=== PATIENT | female | born 1970 | race Caucasian/White ===

== ENCOUNTER 2019-08-29 10:59 | Outpatient (CLI) | payer OTHER, SELFPAY ==
--- NOTE | 2019-08-29 11:03 | ECG_ITS ---
Measurements Intervals [place] Rate: 65 P: 34 W[place]: 183 QRS: 55 QRSD: 85 T: 48 QT: 386 QTc: 402 Interpretive Statements SINUS RHYTHM NORMAL ECG Electronically Signed On 08-29-2019 11:56:50 CDT by Mookie Galvez D.O.
[2019-08-29 11:33] LABS: Hematocrit 33.2 % (37.0-47.0)
== END 2019-08-29 11:00 | disposition home or self-care (01) ==
LOC: ANHSURGERY 11:03
PROVIDERS: Anesthesiology; PCP Physician Assistant; Visit Provider Obstetrics & Gynecology
DX: Z01.818 Encounter for other preprocedural examination (principal); N92.0 Excessive and frequent menstruation with regular cycle; Z72.0 Tobacco use
CPT/HCPCS: 36415; 85014; 85018; 93005

== ENCOUNTER 2019-09-03 00:34 | Outpatient (CLI) | payer OTHER, SELFPAY ==
[2019-09-03 20:03] LABS: SARS-CoV-2 RNA PCR Negative
== END 2019-09-03 00:35 | disposition home or self-care (01) ==
LOC: ANHCOVIDDT 00:35
PROVIDERS: PCP Physician Assistant; Visit Provider Obstetrics & Gynecology
DX: Z01.818 Encounter for other preprocedural examination (principal); Z11.59 Encounter for screening for other viral diseases
CPT/HCPCS: 87635; C9803; U0003

== ENCOUNTER 2019-09-05 01:43 | Day surgery (SDC) | payer OTHER, SELFPAY ==
[2019-08-27 11:15] VITALS: BMI 27.8
[2019-09-05 09:49] VITALS: BP 127/71; PULSE 60; RESP 20; TEMP 35.7; O2SAT 100
[2019-09-05] MEDS: LACTATED RINGERS 1,000 ML 30 ML IV CONT (10:05)
[2019-09-05] MEDS: ACETAMINOPHEN 500 MG TABLET 1000 MG PO (10:10)
--- NOTE | 2019-09-05 10:23 | WPDANESEPPF ---
Anes - Initial Pre Proc Eval Procedure: Operation Date: 09/05/19 12:00 Proposed Procedures p Hysteroscopy Dilation and Curettage, With Myosure, Polypectomy, Possible Myomectomy - Fortunato Sin MD Date/Time: 09/05/19 10:23 Surgeon: Fortunato Sin MD Pre Op Diagnosis: Post Menopausal Bleeding Patient Data Age: 48 Gender: F Height: 5 ft 8 in Weight: 83.01 kg Allergies Allergy/AdvReac Type Severity Reaction Status Date / Time codeine Allergy Unknown vomiting, Verified 08/27/19 11:16 rash Penicillins Allergy Unknown throat Verified 08/27/19 11:16 swelling, difficulty breathing erythromycin base AdvReac Unknown HEART RACES Verified 08/27/19 11:16 Sulfa (Sulfonamide AdvReac Unknown N&V Verified 08/27/19 11:16 Antibiotics) Home Medications Medication Instructions Recorded Confirmed Type losartan 100 mg PO DAILY PRN 08/27/19 08/27/19 History Patient hx anesthesia problems: none Family hx anesthesia problems: none PMFSH Past Medical History Medical History Anemia Hypertension Tobacco abuse Family History Family History Other Diabetes mellitus Family history of kidney disease Social History Social History Smoking packs per day: 0.75 Smoking cigarettes per day: 15.0 Years smoked: 30 Smoking pack-years: 22.50 Smoking status: Current every day smoker Tobacco type: cigarettes Alcohol intake: never Substance use: never Spiritual care concerns: No Anes - Eval Final PreProcedure Day of Procedure 09/05/19 10:23 Patient weight: overweight Heart: regular rate and rhythm Lungs: decreased breath sounds Airway: Mallampati scale class II Neurological: alert and oriented Last oral intake: >/= 8 hours ASA classification: III Emergent: no Anesthetic plan: proceed Anesthesia type and monitoring: general GIVS and standard monitoring Informed Consent: The patient's anesthetic plan and its attendant risks and benefits were discussed with the patient/family/POA. Questions were solicited and answers provided to the satisfaction of the patient/family/POA.
--- NOTE | 2019-09-05 12:02 | PM.IMHP ---
H&P: HPI History of Present Illness Chief complaint: Post Menopausal Bleeding Narrative: Irma Amos is a 48 year old female presents with complaints of irregular heavy vaginal bleeding. Was seen in the emergency room last month with endometrial abnormality consistent with a polyp or fibroid as well as anemic with hemoglobin of 10. Was scheduled previously for hysteroscopy and removal of endometrial abnormality last year but was unable to have this scheduled. Presents today for removal of endometrial abnormality. Review of Systems Review of Systems: All systems reviewed & are unremarkable except as noted in HPI and below PMFSH Past Medical History Medical History Anemia Hypertension Tobacco abuse Family History Family History Other Diabetes mellitus Family history of kidney disease Social History Social History Smoking packs per day: 0.75 Smoking cigarettes per day: 15.0 Years smoked: 30 Smoking pack-years: 22.50 Smoking status: Current every day smoker Tobacco type: cigarettes Alcohol intake: never Substance use: never Spiritual care concerns: No Meds Home Medications and Allergies Home Medications Medication Instructions Recorded Confirmed Type losartan 100 mg PO DAILY PRN 08/27/19 09/05/19 History Allergies Allergy/AdvReac Type Severity Reaction Status Date / Time codeine Allergy Severe vomiting, Verified 09/05/19 10:58 rash Penicillins Allergy Severe throat Verified 09/05/19 10:58 swelling, difficulty breathing erythromycin base AdvReac Severe HEART RACES Verified 09/05/19 10:58 Sulfa (Sulfonamide AdvReac Severe N&V Verified 09/05/19 10:58 Antibiotics) Exam Const: General: no acute distress Resp: Auscultation: clear to auscultation bilaterally Cardio: Rate: regular rate Rhythm: regular rhythm GI: GI Palp: Yes Soft to palpation : Other: Uterus adnexa normal size and shape nontender Assessment and Plan Assessment and plan (1) Abnormal uterine bleeding due to disorder of endometrium: Code(s): N93.9 - Abnormal uterine and vaginal bleeding, unspecified; N85.9 - Noninflammatory disorder of uterus, unspecified Status: Acute Additional Plan Proceed with hysteroscopy uterine curettings and polypectomy/myomectomy.
[2019-09-05] MEDS: KETOROLAC 30 MG/ML VIAL (*BKC) IV PUSH (12:46)
--- NOTE | 2019-09-05 12:52 | PM.OP ---
Procedure Note - Brief Procedure Note - Brief Date of procedure: 09/05/19 Pre-op diagnosis: Post Menopausal Bleeding Endometrial abnormality Left groin skin tag Post-op diagnosis: same Procedure performed: 1. Hysteroscopy 2. Myomectomy 3. Removal of left groin skin tag Description of procedure: Patient prepped in usual manner for this procedure. Cervix dilated to allow the hysteroscope to be placed which did reveal an endometrial fibroid. Otherwise the cavity was had abnormality. MyoSure instrument was placed and activated under direct visualization with the fibroid being removed in total. There was no significant bleeding. Also left groin lesion was injected with lidocaine and removed without difficulty. A rendered hemostatic and at this point the patient was sent to recovery room in stable condition. Anesthesia: GLMA Surgeon: Fortunato Sin MD Estimated blood loss (mL): 10 Drains: No Packing: No Pathology: yes Complications: No immediate complications Condition: stable Disposition: PACU Findings: 1. Endometrial fibroid 2. Left groin lesion
[2019-09-05 12:57] VITALS: BP 164/71; PULSE 71; RESP 16; O2SAT 98
[2019-09-05 13:20] VITALS: BP 152/65; PULSE 62; RESP 14
[2019-09-05 13:50] VITALS: BP 152/65; PULSE 62; RESP 20
[2019-09-05 14:20] VITALS: BP 146/68; PULSE 58; RESP 20
== END 2019-09-05 14:16 | disposition home or self-care (01) ==
PROVIDERS: PCP Physician Assistant; Visit Provider Obstetrics & Gynecology
PROC: 0U5B8ZZ Destruction of Endometrium, Via Natural or Artificial Opening Endoscopic (ICD-10-PCS; CPT 58563; principal; 2019-09-05 12:00)
DX: N95.0 Postmenopausal bleeding (principal); D25.9 Leiomyoma of uterus, unspecified; L91.8 Other hypertrophic disorders of the skin; D64.9 Anemia, unspecified; I10 Essential (primary) hypertension; F17.210 Nicotine dependence, cigarettes, uncomplicated
CPT/HCPCS: 58561; 11200; 88305; A9270; J1885; J2250; J2405; J2704; J3010; J7030; J7120

== ENCOUNTER 2021-11-20 10:45 | Outpatient (CLI) | payer OTHER, SELFPAY ==
--- NOTE | 2021-11-20 11:01 | ECG_ITS ---
Measurements Intervals [place] Rate: 61 P: 39 [place]: 187 QRS: 39 QRSD: 86 T: 138 QT: 423 QTc: 428 Interpretive Statements SINUS RHYTHM CONSIDER INFERIOR INFARCT, AGE INDETERMINATE ST-T WAVE ABNORMALITY IN HIGH LATERAL LEADS- CONSIDER ISCHEMIA BASELINE ARTIFACT- I, III, AVR, AVL, AVF, V1-V6 ABNORMAL ECG COMPARED TO ECG 08/29/2019 11:41:12 CONSIDER INFERIOR INFARCT, AGE INDETERMINATE NOW PRESENT ST-T WAVE ABNORMALITY IN HIGH LATERAL LEADS- CONSIDER ISCHEMIA NOW PRESENT Electronically Signed On 11-25-2021 11:07:36 CDT by Mookie Galvez D.O.
[2021-11-20 13:18] LABS: Hematocrit 44.6 % (37.0-47.0); Hemoglobin 15.1 g/dL (12.0-15.0)
== END 2021-11-20 10:46 | disposition home or self-care (01) ==
LOC: ANHSURGERY 10:55
PROVIDERS: Anesthesiology; PCP Physician Assistant; Visit Provider Obstetrics & Gynecology
DX: N92.1 Excessive and frequent menstruation with irregular cycle (principal); Z01.818 Encounter for other preprocedural examination; R94.31 Abnormal electrocardiogram [ECG] [EKG]
CPT/HCPCS: 36415; 85014; 85018; 86850; 86900; 86901; 93005

== ENCOUNTER 2021-11-25 00:17 | Day surgery (SDC) | payer OTHER, SELFPAY ==
[2021-11-18 10:00] VITALS: BMI 29.5
--- NOTE | 2021-11-18 10:07 | SUR.PREOP ---
Report to the Outpatient Waiting Room, entrance under the green pavilion located off [facility], at time 0600 on date 11/25/21. OR Time: 0730. Time changes happen often and if your time is changed the preop area will call you the afternoon before. - You and your visitor will be asked to self-screen and do not enter if you have any COVID symptoms. - Only one visitor and NO children visitors are allowed at this time. - The patient visitor is requested to leave or wait in car when not with patient due to restrictions. - A mask is required within the hospital. Patients may have clear liquids (water, carbonated beverages, clear teas, apple juice) until 3 hours prior to surgery with a maximum of 20 ounces. - No food from midnight until time of surgery BEFORE 0430 AM - Infants may have breast milk until 4 hours before surgery, infant formula 6 hours prior to surgery. - Children will be allowed to drink immediately following surgery. If applicable, please bring a bottle or sippy cup to assist with drinking. Juice, water, soda, and popsicles are readily available. For infants on formula, please bring formula the day of surgery. Pacifiers are allowed. Take the following medications with a SIP of water the morning of surgery: HOLD ALL MEDS MORNING OF SURGERY Medications to discontinue per physician SUPPLEMENTS AND VITAMINS FOR 3 DAYS Date to take last dose Please no make-up, nail [place], hairspray, perfume, deodorant, or body powder the day of surgery. No jewelry (including any body piercings) or valuables the day of surgery, leave them at home. Please take a shower or bath the night before, or the morning of, surgery with an antibacterial soap. Wear comfortable, loose fitting clothing. Children are encouraged to wear pajamas. - Jewelry must be removed prior to entering the operating room. Rings and piercings that are not removed may be cut off. - The hospital will not accept responsibility for valuables. - Please leave all valuables, including medications, at home the day of surgery. If you are going home after surgery, a licensed school bus driver/teacher assistant must drive you home. - NO public transportation without another adult. - We recommend that an adult stay with you for 24 hours following discharge. - We also recommend that you do not drive, make important decision, drink alcoholic beverages, or take any drugs that were not prescribed by your health care provider for at least 24 hours after your discharge time. For Pediatric surgeries, we recommend two adults accompany the child home (only one inside the building at this time). Follow any additional instructions given to you from your surgeon. If you or anyone in your household have experienced Covid symptoms in the past week, please notify your surgeon or the nurse liaison at the phone number below for possible testing. Telephone instructions given to PATIENT and asked if any additional questions and then verbalized understanding. Patient advised to call surgeon office or pre surgery nurse liaison [phone] if any additional questions.
--- NOTE | 2021-11-24 15:26 | PM.IMHP ---
H&P: HPI History of Present Illness Date/Time: 11/24/21 15:26 50-year-old female presents for evaluation treatment of heavy vaginal bleeding cramping. She has had endometrial ablation in the past, though she has continued with heavy bleeding cramping and discomfort since that time. Cycles irregular but when they do occur the last 3-5 days very heavy cramping and clotting. Has had an ultrasound which also reveals fundal fibroid. To previous deliveries and tubal ligation the past as well. She presents today for robotic hysterectomy with ovarian preservation. Chief Complaint: Menometrorrhagia Dysmenorrhea Fibroid uterus Failed endometrial ablation Review of Systems Review of Systems: All systems reviewed & are unremarkable except as noted in HPI and below PMFSH Past Medical History Medical History Anemia Hypertension Tobacco abuse Surgical History Surgical History (Updated 11/24/21 @ 15:30 by Fortunato Sin MD) History of x2 History of dilation and curettage 02/11/15 hscope d&c--benign 09/06/19 hscope d&c/polypectomy/myomectomy 08/21/20 hscope d&c/endometrial ablation--menometrorrhagia, dysmenorrhea; ovarian cyst History of endometrial ablation 08/21/20 hscope d&c/endometrial ablation--menometrorrhagia, dysmenorrhea; ovarian cyst History of tubal ligation Family History Family History Mother Acute myocardial infarction Malignant lymphoma Other Diabetes mellitus Family history of kidney disease Social History Social History Smoking packs per day: 1 Smoking cigarettes per day: 20.0 Years smoked: 25 Smoking pack-years: 25.00 Smoking status: Current every day smoker Tobacco type: cigarettes Alcohol intake: never Substance use: never Substance use type: does not use Additional living arrangements comments: Additional occupation/education comments: self employed Gender identity (if verbalized by the patient): Female Sexual Orientation (if Verbalized by the Patient): Straight or Heterosexual Spiritual care concerns: No Meds Home Medications and Allergies Home Medications Medication Instructions Recorded Confirmed Type ibuprofen 800 mg tablet 800 mg PO TID PRN pain #20 tabs 09/05/19 11/18/21 Rx fexofenadine 60 mg tablet (Carlotta 60 mg PO DAILY 10/23/21 11/18/21 History Allergy) Allergies Allergy/AdvReac Type Severity Reaction Status Date / Time codeine Allergy Severe vomiting, Verified 09/05/19 10:58 rash Penicillins Allergy Severe throat Verified 09/05/19 10:58 swelling, difficulty breathing erythromycin base AdvReac Severe HEART RACES Verified 09/05/19 10:58 Sulfa (Sulfonamide AdvReac Severe N&V Verified 09/05/19 10:58 Antibiotics) Exam Const: General: cooperative, healthy appearing and comfortable Resp: Effort & Inspection: normal respiratory effort Auscultation: clear to auscultation bilaterally Cardio: Rate: regular rate Rhythm: regular rhythm GI: Inspection: normal to inspection Auscultation: normal bowel sounds : External Female Exam: normal external appearance Speculum Exam - Vagina: normal appearance of the vagina Speculum Exam - Cervix: normal appearance of the cervix Bimanual exam- vagina & uterus: enlarged ( 10-12 week size) Bimanual Exam- Adnexa, other: normal adnexae Assessment and Plan Assessment and plan (1) Menorrhagia: Code(s): N92.0 - Excessive and frequent menstruation with regular cycle Status: Acute (2) Pelvic pain: Code(s): R10.2 - Pelvic and perineal pain Status: Acute (3) Fibroid uterus: Code(s): D25.9 - Leiomyoma of uterus, unspecified Status: Acute (4) History of endometrial ablation: Code(s): Z98.890 - Other specified postprocedural s
[2021-11-25] VITALS (9 sets, daily range): BP systolic 150–173; BP diastolic 74–97; PULSE 67–86; RESP 14–20; TEMP 36.3–36.8; O2SAT 95–100
[2021-11-25] MEDS: LACTATED RINGERS 1,000 ML 30 ML IV CONT ×3 (06:23→09:02)
[2021-11-25] MEDS: ACETAMINOPHEN 500 MG TABLET 1000 MG PO (06:24)
[2021-11-25] MEDS: KETOROLAC 15 MG/ML VIAL (*BKC) IV PUSH (06:25)
--- NOTE | 2021-11-25 07:03 | WPDANESEPPF ---
Anes - Initial Pre Proc Eval Procedure: Operation Date: 11/25/21 07:30 Proposed Procedures p Robotic Assisted Total Laparoscopic Hysterectomy - Fortunato Sin MD Date/Time: 11/25/21 07:03 Surgeon: Fortunato Sin MD Pre Op Diagnosis: menometrorrhagia Patient Data Age: 50 Gender: F Height: 1.68 m Weight: 82.3 kg Last Vital Signs Temp 97.4 F L 11/25/21 06:33 Pulse 69 11/25/21 06:33 Resp 16 11/25/21 06:33 BP 162/83 H 11/25/21 06:33 Pulse Ox 99 11/25/21 06:33 O2 Del Method Room Air 11/25/21 06:33 Allergies Allergy/AdvReac Type Severity Reaction Status Date / Time codeine Allergy Severe vomiting, Verified 11/25/21 06:32 rash Penicillins Allergy Severe throat Verified 11/25/21 06:32 swelling, difficulty breathing erythromycin base AdvReac Severe HEART RACES Verified 11/25/21 06:32 Sulfa (Sulfonamide AdvReac Severe N&V Verified 11/25/21 06:32 Antibiotics) Home Medications Medication Instructions Recorded Confirmed Type ibuprofen 800 mg tablet 800 mg PO TID PRN pain #20 tabs 09/05/19 11/25/21 Rx fexofenadine 60 mg tablet (Carlotta 60 mg PO DAILY 10/23/21 11/25/21 History Allergy) Patient hx anesthesia problems: none Family hx anesthesia problems: none Results Review: All pre-operative results and documents have been reviewed as part of the pre-operative evaluation. [facility] Past Medical History Medical History Anemia Hypertension Tobacco abuse Surgical History Surgical History (Updated 11/24/21 @ 15:30 by Fortunato Sin MD) History of x2 History of dilation and curettage 02/11/15 hscope d&c--benign 09/06/19 hscope d&c/polypectomy/myomectomy 08/21/20 hscope d&c/endometrial ablation--menometrorrhagia, dysmenorrhea; ovarian cyst History of endometrial ablation 08/21/20 hscope d&c/endometrial ablation--menometrorrhagia, dysmenorrhea; ovarian cyst History of tubal ligation Family History Family History Mother Acute myocardial infarction Malignant lymphoma Other Diabetes mellitus Family history of kidney disease Social History Social History Smoking packs per day: 0.75 Smoking cigarettes per day: 15.0 Years smoked: 30 Smoking pack-years: 22.50 Smoking status: Current every day smoker Tobacco type: cigarettes Alcohol intake: never Substance use: never Substance use type: does not use Living arrangements: with family Additional living arrangements comments: Additional occupation/education comments: self employed Gender identity (if verbalized by the patient): Female Sexual Orientation (if Verbalized by the Patient): Straight or Heterosexual Spiritual care concerns: No Anes - Eval Final PreProcedure Day of Procedure 11/25/21 07:03 Patient weight: normal Heart: regular rate and rhythm Lungs: clear to auscultation Neurological: alert and oriented Last oral intake: >/= 8 hours ASA classification: II Emergent: no Anesthetic plan: proceed Anesthesia type and monitoring: general ETT and standard monitoring Results Review: All pre-operative results and documents have been reviewed as part of the pre-operative evaluation. Informed Consent: The patient's anesthetic plan and its attendant risks and benefits were discussed with the patient/family/POA. Questions were solicited and answers provided to the satisfaction of the patient/family/POA.
--- NOTE | 2021-11-25 07:11 | WPDHPUPDATE1 ---
History and Physical Update Update Date/Time: 11/25/21 07:11 History and Physical has been reviewed, including an updated exam of the patient. There are NO changes in the patient's condition. Risks, benefits, and alternatives have been discussed and questions answered. Patient agrees to proceed with procedure.
[2021-11-25] MEDS: SCOPOLAMINE 1.5 MG PATCH TRANSDERM (07:18)
[2021-11-25] MEDS: ceFAZolin 2 GM/D5W 50 ML 2 GM/50 ML BAG IVPB (07:30)
[2021-11-25] MEDS: METHYLENE BLUE 0.5% INJ 10 ML AMPULE 20 ML IRRIGATION (08:22)
--- NOTE | 2021-11-25 08:49 | W.PM.PROC2 ---
Procedure Note - Detailed Date of Procedure 11/25/21 Pre-op Diagnosis 1. Menometrorrhagia 2. Dysmenorrhea 3. Prior endometrial ablation Post-op Diagnosis Same (4. Left ovarian cyst) Procedure Performed 1. Robotic assisted laparoscopic total hysterectomy. 2. Left ovarian cystectomy Surgeon Fortunato Sin MD Anesthesia General Findings Mildly enlarged uterus. Left ovary 4-5cm clear fluid-filled cyst. Description of Procedure Patient prepped draped in usual manner for this procedure. Cervical instruments were placed for uterine mobility throughout the case. Attention was then placed the abdominal cavity where trocar sites were marked and trocars were placed under direct visualization. Surgeon then moved to the console and findings were noted as above. Broad ligaments bilaterally were cauterized cut and the bladder flap was developed without difficulty. Bladder was back filled with dye colored fluid and was found to be intact and expanded appropriately. Posterior leaf the broad ligament was also incised to skeletonize the uterine vessels. Bilaterally the uterine vessels were cauterized and cut and hemostasis was achieved. Posterior cul-de-sac was then entered and this colpotomy incision was extended circumferentially around the length of the cervix to remove the cervix from the vaginal cuff. Uterus was delivered into the vagina without difficulty. Attention was placed left ovary and cyst was removed and cyst wall excised. Bed of the cyst wall site was cauterized. Irrigation was undertaken there were no bleeders of significance and no oozing. Vaginal cuff was then closed using V lock suture from the right angle to midline and then from the left angle to the midline in a running manner with good approximation hemostasis noted. Irrigation was then undertaken undertaken with no bleeding noted. Varun was empirically placed on all the incision sites and at this point the procedure was considered terminated. Gas was allowed to escape instruments removed and incisions approximated with 4-0 Monocryl suture. Patient was then sent to recovery room in stable condition. Estimated Blood Loss 100 Drains No Packing No Pathology Yes Condition Stable Disposition PACU [facility] Billing Surgery - Charge Forward: Surgery Billing
[2021-11-25] MEDS: fentaNYL CITRATE INJ (*CRX) 100 MCG/2 ML VIAL 25 MCG IV PUSH ×3 (09:13→09:46)
[2021-11-25] MEDS: ALBUTEROL SULFATE NEB 2.5 MG/3 ML INH INHALATION (09:32)
[2021-11-25] MEDS: ONDANSETRON INJ 4 MG/2 ML VIAL IV PUSH (09:53)
--- NOTE | 2021-11-25 10:20 | PC.NURSE ---
This patient, Irma Amos, was received from PACU on 11/25/21 at 1020. Patient/family oriented to unit policies and routines
[2021-11-25] MEDS: DEXTROSE 5%/0.45% SOD CHL 1,000 ML 125 ML IV CONT (10:35)
[2021-11-26 04:55] VITALS: BP 158/82; PULSE 70; RESP 18; TEMP 36.7
[2021-11-26 05:39] LABS: Basophils Percent Auto 0.3 % (0.2-1.2); Eosinophils Absolute Auto 0.1 K/mm3 (0-0.3); Eosinophils Percent Auto 0.7 % (0-4.4); Hematocrit 38.7 % (37.0-47.0); Hemoglobin 13.3 g/dL (12.0-15.0); Immature Granulocyte Absolute 0.08 K/mm3 (0.00-0.031); Immature Granulocyte Percent A 0.5 % (0-0.5); Lymphocytes Absolute Auto 2.03 K/mm3 (0.9-3.2); Lymphocytes Percent Auto 13.2 % (18.3-44.2); Mean Corpuscular HGB Conc 34.4 g/dl (32-36); Mean Corpuscular Hemoglobin 32.4 pg (26-34); Mean Corpuscular Volume 94.4 fl (80-100); Mean Platelet Volume 11.1 fl (7.4-10.4); Monocytes Absolute Auto 1.1 K/mm3 (0.1-0.6); Monocytes Percent Auto 7.2 % (2.6-8.5); Neutrophils Percent Auto 78.1 % (45.5-73.1); Platelet Count Result 264 k/mm3 (150-375); Red Cell Distribution Width 12.4 % (11.5-14.5); White Blood Count 15.3 K/mm3 (4.5-10.0)
[2021-11-26] MEDS: SIMETHICONE 80 MG TAB.CHEW PO (08:21)
[2021-11-26 08:40] VITALS: BP 174/74; PULSE 57; RESP 18; TEMP 36.7; O2SAT 100
--- NOTE | 2021-11-26 10:09 | P.PNAN_ITS ---
Anes - Prog Note Post-Op Date/Time: 11/26/21 10:09 Cardiovascular status: normal Respiratory status: normal Airway patency: baseline Mental status: baseline Post-Op hydration status: normal Vital Signs: Last Vital Signs Temp 36.7 C 11/26/21 08:40 Pulse 57 L 11/26/21 08:40 Resp 18 11/26/21 08:40 BP 174/74 H 11/26/21 08:40 Pulse Ox 100 11/26/21 08:40 O2 Del Method Room Air 11/25/21 19:00 O2 Flow Rate 2 11/25/21 09:55 Pain Score (VAS): 05/07 I/O: Intake & Output 11/25/21 11/26/21 11/26/21 23:59 07:59 15:59 Intake Total 240 700 240 Output Total 2000 Balance 240 -1300 240 Laboratory Tests 11/26/21 04:59 11/26/21 04:59 WBC 15.3 H RBC 4.10 L Hgb 13.3 Hct 38.7 MCV 94.4 MCH 32.4 MCHC 34.4 RDW 12.4 Plt Count 264 MPV 11.1 H Immature Gran % (Auto) 0.5 Neut % (Auto) 78.1 H Lymph % (Auto) 13.2 L [place] % (Auto) 7.2 Eos % (Auto) 0.7 Baso % (Auto) 0.3 Lymph # (Auto) 2.03 [place] # (Auto) 1.1 H Eos # (Auto) 0.1 Baso # (Auto) 0.0 Abs Immat Gran (auto) 0.08 H Absolute Neuts (auto) 12.0 H Absolute Nucleated RBC 0.0 Nucleated RBC % 0.0 Post-procedural complaints: none Patient Feedback: Patient satisfied with anesthetic care.
== END 2021-11-26 09:56 | disposition home or self-care (01) ==
LOC: ANHSURGERY 07:19 → ANHOB2 18:04
PROVIDERS: PCP Physician Assistant; Visit Provider Obstetrics & Gynecology
PROC: (CPT 58550; principal; 2021-11-25 07:30)
DX: N80.0 Endometriosis of uterus (principal); N92.1 Excessive and frequent menstruation with irregular cycle; R10.2 Pelvic and perineal pain; D25.9 Leiomyoma of uterus, unspecified; I10 Essential (primary) hypertension; F17.210 Nicotine dependence, cigarettes, uncomplicated
CPT/HCPCS: 58550; 58662; 36415; 85025; 88307; 94640; 99199; A9270; J0330; J0690; J1100; J1885; J2250; J2405; J2704; J3010; J7030; J7120; Q9968